=== PATIENT | female | born 1955 | race Hispanic/Latino ===

== ENCOUNTER → 2017-11-02 | Day surgery (SDC) | payer MEDICARE ==
[~2017-11-02] MED LIST: ASPIRIN81 MG PO; CRESTOR PO; CRESTOR10 MG PO; FENTANYL CITRATE/PF 100MCG/2 ML INJ ONE; LEVOTHYROXINE PO; LEVOTHYROXINE50 MCG PO; LISINOPRIL PO; LISINOPRIL2.5 MG PO; METFORMIN HCL500 MG PO; METFORMIN PO; METOPROLOL; METOPROLOL PO; METOPROLOL SUCC25 MG PO; MIDAZOLAM HCL 2 MG/2 ML VIAL ONE; OR PHACO EYE KIT ONE; PREOP PHACO EYE KIT ONE; TERBINAFINE HC250 MG PO
[2017-11-02 16:00] VITALS: BP 162/69
--- NOTE | 2017-11-11 20:30 | Operative Report ---
DATE OF PROCEDURE: November 02, 2017 PREOPERATIVE DIAGNOSIS: Visually significant cataract to the left eye. POSTOPERATIVE DIAGNOSIS: Visually significant cataract to the left eye. PROCEDURE: Phacoemulsification with posterior chamber intraocular lens, left eye. ANESTHESIA: MAC. COMPLICATIONS: None. PROCEDURE IN DETAIL: The patient was taken to the operating room where the patient had tetracaine 0.5% drops placed in the eye. The patient's eye was then prepped and draped in the usual sterile ophthalmic way. A lid speculum was placed in the eye. A side-port incision was made, and 0.2 mL of 1% lidocaine preservative free was injected in the anterior chamber. Viscoelastic was placed in the anterior chamber. A keratome was used to make a temporal clear cornea incision. A cystotome and Utrata forceps were used to create an anterior capsulorrhexis without any complications. Hydrodissection and hydrodelineation were then performed, and a good fluid wave was noted. A phacoemulsification probe was placed in the eye, and the nucleus was phacoemulsified using the [id number] technique. Irrigation and aspiration handpiece was used to remove any residual cortical material. At this time, there was a small amount of zonular dehiscence inferiorly. There was no vitreous extending around the capsular bag, which was still intact. Viscoelastic was placed in the capsular bag. An Krunal SN60WF was placed into the bag without any complications. The irrigation and aspiration handpiece was used to remove any residual cortical material from within the eye. Miostat was injected in the anterior chamber. The wound was checked to make sure there was no evidence of leakage. Two drops of Vigamox were placed in the eye. Once this was done, the patient had Maxitrol ointment, a patch and a Wagner shield placed on the eye. The patient tolerated the procedure well and was taken to the recovery room in good condition. The patient will be seen in my office tomorrow. Job#: [id number]
--- NOTE | 2017-11-11 21:33 | Operative Report ---
DATE OF PROCEDURE: November 02, 2017 PREOPERATIVE DIAGNOSIS: Visually significant cataract to the left eye. POSTOPERATIVE DIAGNOSIS: Visually significant cataract to the left eye. PROCEDURE: Phacoemulsification with posterior chamber intraocular lens. ANESTHESIA: MAC. COMPLICATIONS: None. LENS: Krunal SN60WF, 25.0-diopter lens. PROCEDURE IN DETAIL: The patient was taken to the operating room where the patient had tetracaine 0.5% drops placed in the eye. The patient's eye was then prepped and draped in the usual sterile ophthalmic way. A lid speculum was placed in the eye. A side-port incision was made, and 0.2 mL of 1% lidocaine preservative free was injected in the anterior chamber. Viscoelastic was placed in the anterior chamber. A keratome was used to make a temporal clear cornea incision. A cystotome and Utrata forceps were used to create an anterior capsulorrhexis without any complications. Hydrodissection and hydrodelineation were then performed, and a good fluid wave was noted. A phacoemulsification probe was placed in the eye, and the nucleus was phacoemulsified using the [id number] technique. Irrigation and aspiration handpiece was then used to remove any residual cortical material. At this time, the bag was intact, but there was definitely some slight zonular dehiscence inferiorly. There was no vitreous extending out around the bag. Viscoelastic was placed in the capsular bag and an Krunal SN60WF was placed into the bag without any complications. The lens was centered well and irrigation and aspiration handpiece was used to remove any residual viscoelastic material from within the eye. Miostat was injected into the anterior chamber and the wound was checked to make sure there was no evidence of leakage. Two drops of Vigamox were placed in the eye with Maxitrol ointment, a patch and a Wagner shield. The patient tolerated the procedure well and will be taken to the recovery room in good condition. The patient will be seen in my office tomorrow. Job#: [id number] GE
== END | disposition home or self-care (01) ==
LOC: OR 11:38
PROVIDERS: ATTEND Ophthalmology
DX: H25.042 Posterior subcapsular polar age-related cataract, left eye (principal); H25.12 Age-related nuclear cataract, left eye; I25.810 Atherosclerosis of coronary artery bypass graft(s) without angina pectoris; E11.9 Type 2 diabetes mellitus without complications; I45.10 Unspecified right bundle-branch block; Z79.82 Long term (current) use of aspirin; Z79.84 Long term (current) use of oral hypoglycemic drugs; Z95.1 Presence of aortocoronary bypass graft
CPT/HCPCS: 36415; 66984; 82948; 93005; J2250; V2632